=== PATIENT | male | born 1970 | race Caucasian/White ===

== ENCOUNTER 2022-10-09 15:29 | Emergency (ER) | payer MEDICAID ==
[~2022-10-09] VITALS: Ht 190.5 cm; Wt 99.9 kg
[2022-10-09 15:50] VITALS: BP 155/103
[2022-10-09] MEDS ORDERED: ONDANSETRON 4 MG/2 ML VIAL IVP ONE (18:05)
[2022-10-09] MEDS ORDERED: NACL 0.9% 1,000 ML IV ONE (18:05)
--- NOTE | 2022-10-09 18:11 | NUR ---
PT AMB W/O ASST TO ER BED 9
--- NOTE | 2022-10-09 18:15 | NUR ---
52 y/o M BIBA from home c/o chills, nausea, vomiting x 4 days. Patient A&Ox4, ambulatory, states nausea with vomiting x 4-5 episodes today; no hemaemesis. Patient states slight constipation; last BM yesterday; dark brown/formed. Denies abd pain, diarrhea, constipation, chest pain. Denies OTC meds prior to arrival. Pt placed onto child monitor. Bed locked in lowest position, side rails x 1. PMH: HIV, HLD Meds: atorvastatin, prezista NKDA Sx: Denies
[2022-10-09 18:26] LABS: BASOPHILS % (AUTO) 0.8 % (0.0-2.0); EOSINOPHILS % (AUTO) 0.4 % (0.0-4.0); HEMOGLOBIN 17.4 g/dL (12.0-18.0); LYMPHOCYTES # (AUTO) 1.4 K/uL (2.0-11.5); LYMPHOCYTES % (AUTO) 28.1 % (20.5-51.1); MEAN CORPUSCULAR HEMOGLOBIN 30 pg (27-31); MEAN CORPUSCULAR HGB CONC 35 g/dL (33-37); MEAN CORPUSCULAR VOLUME 85.8 fL (80-94); MONOCYTES # (AUTO) 0.4 K/uL (0.8-1.0); MONOCYTES % (AUTO) 6.9 % (1.7-9.3); NEUTROPHILS # (AUTO) 3.3 K/uL (1.8-7.7); NEUTROPHILS % (AUTO) 63.8 % (42.2-75.2); PLATELET COUNT (AUTO) 253 K/uL (140-450); RED BLOOD CELL COUNT(AUTO) 5.82 MIL/uL (4.20-6.10); RED CELL DISTRIBUTION WIDTH 15.2 % (11.6-13.7); WHITE BLOOD COUNT (AUTO) 5.1 K/uL (4.8-10.8)
[2022-10-09 19:10] LABS: ALBUMIN 4.1 g/dL (3.4-5.0); ANION GAP 13.3 (8-16); CREATININE 1.3 mg/dL (0.6-1.3); POTASSIUM 3.3 mmol/L (3.5-5.1); TOTAL BILIRUBIN 0.6 mg/dL (0.0-1.0)
--- NOTE | 2022-10-09 19:12 | NUR ---
Report and transfer of care given to SATYA Shaikh.
--- NOTE | 2022-10-09 19:29 | NUR ---
NAD noted - ABCs intact with respirations noted to be even and unlabored - A/O x 4 - pt reports continued nausea and states that he has not had BM in couple days - MD made aware.
[2022-10-09] MEDS ORDERED: POTASSIUM CHLORIDE 10 MEQ TABER PO ONE (19:40)
[2022-10-09] MEDS ORDERED: ONDA-188 SL (19:42)
[2022-10-09 20:11] VITALS: BP 176/104
== END 2022-10-09 20:14 | disposition home or self-care (01) ==
LOC: MED 15:29
DX: R11.2 Nausea with vomiting, unspecified (principal); I10 Essential (primary) hypertension; Z79.899 Other long term (current) drug therapy
CPT/HCPCS: 36415; 80053; 83690; 85025; 96361; 96374; 99283; J2405; J7030